=== PATIENT | male | born 1970 | race Caucasian/White ===

== ENCOUNTER 2017-08-03 14:23 | Emergency (ER) | payer BC ==
[~2017-08-03] VITALS: Ht 154.9 cm; Wt 63.5 kg
[2017-08-03] MEDS ORDERED: ONDANSETRON HCL INJ 2 MG/ML VIAL IV STA (14:26)
[2017-08-03] MEDS ORDERED: MORPHINE SULFATE 4 MG/ML SYR IV STA (14:26)
[2017-08-03] MEDS ORDERED: SODIUM CHLORIDE 0.9% 1000ML 1,000 ML IV STA (14:26)
[2017-08-03] MEDS ORDERED: DIATRIZOATE MEGL/DIATRIZOA SOD 30 ML BTL PO ONE (14:35)
--- NOTE | 2017-08-03 14:39 | Operative Report ---
DATE OF PROCEDURE: NO DICTATION, LENGTH 119 MINUTES 39 SECONDS. Job#: [id number]
[2017-08-03 15:16] LABS: BASOPHILS # (AUTO) 0.1 (0.0-0.1); BASOPHILS % 0.3 % (0.0-1.0); EOSINOPHILS % 0.1 % (0.0-6.0); HEMATOCRIT 41.1 % (38.2-49.6); HEMOGLOBIN 14.4 g/dL (14.0-18.0); LYMPHOCYTES # (AUTO) 1.1 (1.0-3.2); LYMPHOCYTES % 5.9 % (18.0-39.1); MEAN CORPUSCULAR VOLUME 88.4 fL (81-99); MONOCYTES # (AUTO) 0.7 (0.2-0.8); MONOCYTES % 3.5 % (4.4-11.3); NEUTROPHILS # (AUTO) 16.8 (2.1-6.9); NEUTROPHILS % 89.7 % (38.7-80.0); PLATELET COUNT 280 x10e3/uL (140-360); RED BLOOD COUNT 4.65 x10e6/uL (4.3-5.7); RED CELL DISTRIBUTION WIDTH 11.9 % (11.7-14.4)
[2017-08-03] MEDS ORDERED: MORPHINE SULFATE 2 MG/ML SYR ONE (15:16)
[2017-08-03 15:35] LABS: ALANINE AMINOTRANSFERASE 12 IU/L (0-55); ALBUMIN 4.3 g/dL (3.5-5.0); ALBUMIN/GLOBULIN RATIO 1.3 (0.8-2.0); ALKALINE PHOSPHATASE 44 IU/L (40-150); AMYLASE 39 U/L (25-125); ANION GAP 12.5 mmol/L (8-16); BLOOD UREA NITROGEN 19 mg/dL (7-26); BUN/CREATININE RATIO 19 (6-25); CALCIUM 9.3 mg/dL (8.4-10.2); CARBON DIOXIDE 25 mmol/L (22-29); CHLORIDE 106 mmol/L (98-107); CREATINE KINASE 81 IU/L (30-200); CREATININE, SERUM 1.01 mg/dL (0.72-1.25); EST GLOMERULAR FILTRATION RATE > 60 ML/MIN (60-); GLUCOSE 103 mg/dL (74-118); LIPASE 12 U/L (8-78); POTASSIUM 3.5 mmol/L (3.5-5.1); SODIUM 140 mmol/L (136-145)
[2017-08-03 15:50] LABS: BILIRUBIN,URINE NEGATIVE (NEGATIVE); CLARITY,URINE CLEAR (CLEAR); COLOR,URINE YELLOW (YELLOW); KETONES,URINE 3+ (NEGATIVE); LEUKOCYTE ESTERASE ,URINE NEGATIVE (NEGATIVE); NITRITE,URINE NEGATIVE (NEGATIVE); PROTEIN,URINE DIPSTICK NEGATIVE (NEGATIVE); URINE UROBILINOGEN 1 mg/dL (0.2 - 1)
--- NOTE | 2017-08-03 15:54 | Diagnostic Imaging Report ---
PROCEDURE: A single AP view of the chest. COMPARISON: None. INDICATIONS: abdominal pain FINDINGS: Lines/tubes: None. Lungs: The lungs are well inflated and clear. There is no evidence of pneumonia or pulmonary edema. Pleura: There is no pleural effusion or pneumothorax. Heart and mediastinum: The heart and the mediastinum are unremarkable. Bones: No acute bony abnormality. IMPRESSION: 1. No acute cardiopulmonary disease. Dictated by: Isidoro Dyer M.D. on 08/03/2017 at 15:54 Electronically approved by: Isidoro Dyer M.D. on 08/03/2017 at 15:54
[2017-08-03 16:05] LABS: BACTERIA,URINE FEW /HPF; MUCUS,URINE FEW (RARE); RBC,URINE 0-5 /HPF (0-5); WBC,URINE (MAN) 0-5 /HPF (0-5)
--- NOTE | 2017-08-03 16:33 | Diagnostic Imaging Report ---
PROCEDURE:US GALLBLADDER COMPARISON:None. INDICATIONS:ABDOMINAL PAIN TECHNIQUE: Lomeli-scale and color doppler transverse and longitudinal images of the right upper quadrant of the abdomen were obtained. FINDINGS: Liver: 12.5 cm in right mid-clavicular line. Normal echogenicity. No masses. Main portal vein: 0.8 cm with expected hepatopedal flow Gallbladder: No stones or sludge Common Bile Duct: 0.3 cm, nondilated Sonographic Ellison's sign: Negative Right kidney: 10.2 cm. Normal echogenicity. No solid masses or hydronephrosis. Pancreas: The visualized portions are unremarkable. Inferior vena cava: Patent Aorta: Within normal limits Ascites: None in the right upper quadrant of the abdomen. CONCLUSION: No specific findings to account for the patient's abdominal pain. No gallbladder abnormality. No biliary ductal dilatation. Dictated by: Isidoro Dyer M.D. on 08/03/2017 at 16:32 Electronically approved by: Isidoro Dyer M.D. on 08/03/2017 at 16:32
--- NOTE | 2017-08-03 17:15 | Diagnostic Imaging Report ---
PROCEDURE: CT ABDOMEN AND PELVIS WITH CONTRAST TECHNIQUE: The abdomen and pelvis were scanned utilizing a multidetector helical scanner from the diaphragm to the lesser trochanter after the IV administration of 100 cc of Isovue 370 and the oral administration of 900 mL of Gastrografin/water. Coronal and sagittal multiplanar reformations were obtained. COMPARISON: None. INDICATIONS: LOWER ABDOMINAL PAIN FINDINGS: LOWER THORAX: Normal. HEPATOBILIARY: A subcentimeter hypodensity in the right hepatic lobe (series 2, image 18) is probably a cyst. Otherwise no focal hepatic lesions. No biliary ductal dilatation. SPLEEN: No splenomegaly. PANCREAS: No focal masses or ductal dilatation. ADRENALS: No adrenal nodules. KIDNEYS/URETERS: No hydronephrosis, stones, or solid mass lesions. PELVIC ORGANS/BLADDER: Unremarkable. PERITONEUM / RETROPERITONEUM: No free air or fluid. LYMPH NODES: No lymphadenopathy. VESSELS: Unremarkable. GI TRACT: No distention or wall thickening. The appendix is only partially visualized, but there is no suspicious inflammation in the right lower quadrant. BONES AND SOFT TISSUES: Unremarkable. IMPRESSION: No specific findings to account for the patient's lower abdominal pain. Dictated by: Isidoro Dyer M.D. on 08/03/2017 at 17:14 Electronically approved by: Isidoro Dyer M.D. on 08/03/2017 at 17:14
[2017-08-03] MEDS ORDERED: IOPAMIDOL 370 MG/ML 200 ML INFUS..BTL INJ ONE (19:16)
[2017-08-03] MEDS ORDERED: SODIUM CHLORIDE 0.9% 50ML 50 ML ONE (19:16)
== END 2017-08-03 18:08 | disposition home or self-care (01) ==
LOC: ER 14:23
DX: R10.13 Epigastric pain (principal); R10.33 Periumbilical pain; R11.2 Nausea with vomiting, unspecified
CPT/HCPCS: 36415; 71045; 74177; 76705; 80053; 81001; 82150; 82550; 82553; 83690; 84484; 85025; 87086; 93005; 99284; J2270; J2405; J7030; Q9967